=== PATIENT | male | born 1980 | race Caucasian/White ===

== ENCOUNTER 2016-09-09 15:37 | Observation (INO) | payer OTHER ==
[~2016-09-09] VITALS: Ht 180.3 cm; Wt 111.1 kg
[2016-09-12] MEDS ORDERED: COLACE-DPS100 MG PO (16:26)
[2016-09-12] MEDS ORDERED: BENADRYL-DPS25 MG PO (16:26)
[2016-09-12] MEDS ORDERED: PERCOCET 7.5 DP1 TAB PO (16:27)
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
== END 2016-09-11 12:15 | disposition home or self-care (01) ==
LOC: ER 15:37 → 5MS 17:30
PROVIDERS: ADMIT Family Medicine
DX: S32.029A Unspecified fracture of second lumbar vertebra, initial encounter for closed fracture (principal); S32.039A Unspecified fracture of third lumbar vertebra, initial encounter for closed fracture; S32.049A Unspecified fracture of fourth lumbar vertebra, initial encounter for closed fracture; S32.059A Unspecified fracture of fifth lumbar vertebra, initial encounter for closed fracture; S32.10XA Unspecified fracture of sacrum, initial encounter for closed fracture; S01.91XA Laceration without foreign body of unspecified part of head, initial encounter; V43.92XA Unspecified car occupant injured in collision with other type car in traffic accident, initial encounter; Y92.488 Other paved roadways as the place of occurrence of the external cause; J30.9 Allergic rhinitis, unspecified; F17.210 Nicotine dependence, cigarettes, uncomplicated; Z88.2 Allergy status to sulfonamides